=== PATIENT | female | born 1975 | race American Indian/Alaskan Native ===

== ENCOUNTER 2017-07-04 10:57 | Emergency (ER) | payer BC, OTHER ==
--- NOTE | 2017-07-04 12:07 | ED PDOC ---
HPI: Eye Injury/Pain Time Seen by Provider: 07/04/17 11:17 Chief Complaint (Nursing): Eye Problem Chief Complaint (Provider): Eye Problem History Per: Patient History/Exam Limitations: no limitations Onset/Duration Of Symptoms: Days (x1) Current Symptoms Are (Timing): Still Present Additional Complaint(s): Patient reports red eyes with yellow discharge on the right eye with no decrease vision that started today. States her daughter had pink eye last week. Otherwise: (-) eye pain, (-) contact lens wear, (-) vision changes, (-) rash, ( -) headache, (-) foreign body sensation. Past Medical History Reviewed: Historical Data, Nursing Documentation, Vital Signs - Medical History PMH: No Chronic Diseases - Surgical History Surgical History: No Surg Hx - Family History Family History: States: Unknown Family Hx - Social History Current smoker - smoking cessation education provided: No Ex-Smoker (has not smoked in the last 12 months): No Alcohol: None Drugs: Denies - Home Medications Home Medications: Ambulatory Orders Medication Instructions Recorded Tobramycin [Tobrex 5 ml] 1 drop OD Q4H #1 bottle 07/04/17 - Allergies Allergies/Adverse Reactions: Allergies Allergy/AdvReac Type Severity Reaction Status Date / Time No Known Allergies Allergy Verified 07/04/17 11:27 Review of Systems ROS Statement: Except As Marked, All Systems Reviewed And Found Negative Eyes: Positive for: Vision Change (decreased), Conjunctivae Inflammation (with yellow discharge in right eye). Negative for: Pain (bilateral), Other (foreign body sensation in b/l eyes) Physical Exam - Reviewed Nursing Documentation Reviewed: Yes Vital Signs Reviewed: Yes - Physical Exam Comments: GENERAL APPEARANCE: Patient is awake, alert, oriented x 3, in no acute distress. HEENT: (-) facial swelling and erythema, (-) facial blisters. LIDS & LASHES: Normal. PUPILS: Pupils bilaterally reactive. EOM's: Intact. LIDS: (-) edema, (-) erythema, (+) thick yellow d/c to the R eyelid. CONJUNCTIVAE: (+) injection to the R eye. Medical Decision Making Medical Decision Making: Initial Impression: Conjunctivitis Time: 1200 --Advised to follow up with primary care physician in 1-2 days without fail. Advised to take medication as prescribed. Return to the emergency room at any time for any new or worsening symptoms. --Patient states she fully agrees with and understands discharge instructions. States that she agrees with the plan and disposition. Verbalized and repeated discharge instructions and plan. I have given the patient opportunity to ask any additional questions. Clinical Impression: Conjunctivitis Scribe Attestation: Documented by Christy Mello, acting as a scribe for Gemma Fry PA-C. Provider Scribe Attestation: All medical record entries made by the Scribe were at my direction and personally dictated by me. I have reviewed the chart and agree that the record accurately reflects my personal performance of the history, physical exam, medical decision making, and the department course for this patient. I have also personally directed, reviewed, and agree with the discharge instructions and disposition. Disposition - Clinical Impression Clinical Impression: Conjunctivitis - Patient ED Disposition Is Patient to be Admitted: No Counseled Patient/Family Regarding: Diagnosis, Need For Followup, Rx Given - Disposition Disposition: Routine/Home Disposition Time: 12:00 Condition: STABLE Additional Instructions: Thank you for letting us take care of you today. You were treated for conjunctivitis. The emergency medical care you received today was directed at your acute symptoms. If you were prescribed any medication, please fill it and take as directed. It may take several days for your symptoms to resolve. Return to the Emergency Department if your symptoms worsen, do not improve, or if you have any other problems. Please contact your doctor in 2 days for re-evaluation and follow up. Bring any paperwork you were given at discharge with you along with any medications you are taking to your follow up visit. Our treatment cannot replace ongoing medical care by a primary care provider (PCP) outside of the emergency department. Thank you for allowing the [employer] team to be part of your care today. Prescriptions: Tobramycin [Tobrex 5 ml] 1 drop OD Q4H #1 bottle Instructions: Conjunctivitis ([place]) Forms: [employer] 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
== END 2017-07-04 12:59 | disposition home or self-care (01) ==
LOC: H.ER 10:57
DX: H10.9 Unspecified conjunctivitis (principal)